=== PATIENT | female | born 1990 | race Caucasian/White ===

== ENCOUNTER → 2017-04-12 | Outpatient (CLI) | payer BC ==
[2015-12-22 10:25] VITALS: BP 130/83
[~2017-04-12] MED LIST: CEPH-264 PO
--- NOTE | 2017-04-12 11:17 | RAD ---
Indication: Cough for more than 3 days. Technique: Two-view chest radiograph was obtained. No comparison is available. Findings: The lungs are clear. The cardiopulmonary silhouette is within normal limits. There is no pleural effusion. The bony structures are intact. Impression: No acute thoracic findings.
== END | disposition home or self-care (01) ==
LOC: DXRAD 10:28
PROVIDERS: ATTEND Nurse Practitioner Family
DX: R05 Cough (principal); F17.200 Nicotine dependence, unspecified, uncomplicated
CPT/HCPCS: 71020

== ENCOUNTER → 2018-02-22 | Outpatient (CLI) | payer OTHER ==
[2015-12-22 10:25] VITALS: BP 130/83
[2018-02-22 10:27] LABS: BASO % 0 % (0-3); EOS # 0.1 x10^3/uL (0.0-0.7); EOS % 1 % (0-3); HEMATOCRIT 40.5 % (36.0-47.0); HEMOGLOBIN 13.7 g/dL (12.0-15.5); LYMPH # 2.3 x10^3/uL (1.0-4.8); LYMPH % 30 % (24-48); MEAN CORPUSCULAR HEMOGLOBIN 32 pg (25-35); MEAN CORPUSCULAR HGB CONC 34 g/dL (31-37); MEAN CORPUSCULAR VOLUME 94 fL (79-100); MONO # 0.6 x10^3/uL (0.0-1.1); MONO % 8 % (0-9); NEUT # 4.8 x10^3uL (1.8-7.7); NEUT % 61 % (31-73); PLATELET COUNT 201 x10^3/uL (140-400); RED BLOOD COUNT 4.33 x10^6/uL (3.50-5.40); RED CELL DISTRIBUTION WIDTH 13.3 % (11.5-14.5); WHITE BLOOD COUNT 7.9 x10^3/uL (4.0-11.0)
== END | disposition home or self-care (01) ==
LOC: PMG 09:36
PROVIDERS: ATTEND Physician Assistant Medical
DX: O21.0 Mild hyperemesis gravidarum (principal)
CPT/HCPCS: 36415; 84702; 85025

== ENCOUNTER → 2018-05-11 | Outpatient (CLI) | payer OTHER ==
[2015-12-22 10:25] VITALS: BP 130/83
--- NOTE | 2018-05-16 16:22 | RAD ---
Clinical indications: Size and date discrepancy. Evaluation for size and dates. Findings: A single intrauterine fetus is seen in cephalic position. heart rate is 140 beats per minute. BPD is 4.43 cm which equals 19 weeks 3 days. HC is 16.75 cm which equals 19 weeks 3 days. AC is 14.31 cm which equals 19 weeks 5 days. FL is 3.18 cm which equals 19 weeks 6 days. Average gestational age by ultrasound is 19 weeks 4 days +/- 12 days with an EDC of October 01, 2018. Clinical LMP is January 02, 2018 and based on this, the EDC would be October 09, 2018. Estimated weight is 0 lbs and 11 oz. . Resolution of the anatomy is poor due to the larger maternal body habitus. A four-chamber heart and three-vessel cord are identified. stomach and urinary bladder are identified. kidneys are unremarkable. Cord insertion site is unremarkable. The intracranial structures are morphologically normal in appearance. Cisterna magna is not well seen on this study but is less than 10 mm. The ventricular trigone measurement is 6.5 mm. The spine is poorly visualized in this study. Four extremities are identified. TOMASZ using the four quadrant method is [ ] cm. Cervical length is 5.2 cm. A grade 0 anterior placenta is seen. No placenta previa and no placenta abruptio is identified. The maternal ovaries are not visualized. Impression: Single IUP in cephalic presentation with gestational age of 19 weeks and 4 days. Electronically signed by: Geraldo Perez MD (05/16/2018 4:18 PM) [id number]
== END | disposition home or self-care (01) ==
LOC: US 11:42
PROVIDERS: ATTEND Obstetrics & Gynecology
DX: O26.842 Uterine size-date discrepancy, second trimester (principal); Z3A.19 19 weeks gestation of pregnancy
CPT/HCPCS: 76805

== ENCOUNTER → 2018-07-04 | Outpatient (CLI) | payer OTHER ==
[2015-12-22 10:25] VITALS: BP 130/83
--- NOTE | 2018-07-05 09:40 | RAD ---
Examination: PREG MORE THAN OR EQ TO 14 WKS History: SIZE AND DATE DISCREPANCY Comparison/Correlation: None Findings: OB ultrasound exam was performed. Exam is limited due to body habitus. Single living intrauterine gestation is present with cardiac rate of 137 bpm. movement evident. cardiac activity identified. Amniotic fluid index is 14.1 cm and this is within normal limits. Placenta is present along the anterior wall. Estimated weight is 1165 g +/- is 172 g. Biparietal diameter of 7 cm corresponds to 20 weeks 0 days. Head circumference of 25.8 cm corresponds to 20 weeks 0 day. Abdominal circumference of 23.1 cm corresponds to 27 weeks 3 days. Femur length of 5.4 cm corresponds 28 weeks 6 days. Head circumference to abdominal circumference ratio is 1.11. Estimated weight is 1165 g. Gestational age is 28 weeks 1 day by 4 parameters with ultrasound EDC of 09/25/2018. Impression: Gestational age of 28 weeks 1 day by ultrasound. Single living intrauterine gestation. Electronically signed by: Franck Lacy MD (07/05/2018 9:34 AM) [facility]
== END | disposition home or self-care (01) ==
LOC: US 14:46
PROVIDERS: ATTEND Obstetrics & Gynecology
DX: O26.843 Uterine size-date discrepancy, third trimester (principal); Z3A.28 28 weeks gestation of pregnancy
CPT/HCPCS: 76805

== ENCOUNTER → 2018-09-01 | Outpatient (CLI) | payer BC ==
[2015-12-22 10:25] VITALS: BP 130/83
[2018-09-01 14:25] LABS: BASO % 0 % (0-3); EOS # 0.1 x10^3/uL (0.0-0.7); EOS % 1 % (0-3); HEMATOCRIT 38.9 % (36.0-47.0); HEMOGLOBIN 13.3 g/dL (12.0-15.5); LYMPH % 17 % (24-48); MEAN CORPUSCULAR HEMOGLOBIN 31 pg (25-35); MEAN CORPUSCULAR HGB CONC 34 g/dL (31-37); MEAN CORPUSCULAR VOLUME 91 fL (79-100); MONO # 0.5 x10^3/uL (0.0-1.1); MONO % 4 % (0-9); NEUT # 8.7 x10^3uL (1.8-7.7); NEUT % 77 % (31-73); PLATELET COUNT 191 x10^3/uL (140-400); RED CELL DISTRIBUTION WIDTH 14.1 % (11.5-14.5); WHITE BLOOD COUNT 11.3 x10^3/uL (4.0-11.0)
== END | disposition home or self-care (01) ==
LOC: LAB 13:00
PROVIDERS: ATTEND Obstetrics & Gynecology
DX: O34.219 Maternal care for unspecified type scar from previous cesarean delivery (principal); Z3A.36 36 weeks gestation of pregnancy
CPT/HCPCS: 36415; 85025; 86592; 86703; 86762; 86900; 86901; 87340

== ENCOUNTER → 2019-06-01 | Outpatient (CLI) | payer BC ==
[2015-12-22 10:25] VITALS: BP 130/83
--- NOTE | 2019-06-01 13:11 | RAD ---
EXAM: Lumbar spine, 5 views. HISTORY: Pain. COMPARISON: None. FINDINGS: 5 views of the lumbar spine are obtained. There is no listhesis. There is degenerative endplate remodeling with disc space narrowing at L5-S1. There is also mild anterior endplate remodeling at L3-L4. There is facet arthropathy at the lumbosacral junction. IMPRESSION: 1. Degenerative change primarily at L5-S1. 2. No acute osseous finding. Electronically signed by: Rubi Cain MD (06/01/2019 1:08 PM) [place] [id number]
== END | disposition home or self-care (01) ==
LOC: DXRAD 12:32
PROVIDERS: ATTEND Physician Assistant Medical
DX: M48.07 Spinal stenosis, lumbosacral region (principal); M47.817 Spondylosis without myelopathy or radiculopathy, lumbosacral region; M12.88 Other specific arthropathies, not elsewhere classified, other specified site
CPT/HCPCS: 72110

== ENCOUNTER 2020-05-09 09:35 | Emergency (ER) | payer BC ==
[~2020-05-09] VITALS: Ht 175.3 cm; Wt 143.9 kg
[2020-05-09] MEDS ORDERED: ONDANSETRON PF 4 MG/2 ML VIAL. ONE (09:45)
[2020-05-09] MEDS ORDERED: ONDANSETRON PF 4 MG/2 ML VIAL. IVP ONE (10:00)
[2020-05-09] MEDS ORDERED: IV NORMAL SALINE 1,000ML 1,000 ML IV ONE (10:00)
[2020-05-09 10:34] LABS: BASO % 0 % (0-3); EOS # 0.2 x10^3/uL (0.0-0.7); EOS % 2 % (0-3); HEMATOCRIT 39.5 % (36.0-47.0); LYMPH # 2.7 x10^3/uL (1.0-4.8); LYMPH % 29 % (24-48); MEAN CORPUSCULAR HEMOGLOBIN 30 pg (25-35); MEAN CORPUSCULAR HGB CONC 33 g/dL (31-37); MEAN CORPUSCULAR VOLUME 92 fL (79-100); MONO # 0.5 x10^3/uL (0.0-1.1); MONO % 6 % (0-9); NEUT # 5.8 x10^3uL (1.8-7.7); NEUT % 62 % (31-73); PLATELET COUNT 225 x10^3/uL (140-400); RED BLOOD COUNT 4.27 x10^6/uL (3.50-5.40); RED CELL DISTRIBUTION WIDTH 13.7 % (11.5-14.5); WHITE BLOOD COUNT 9.2 x10^3/uL (4.0-11.0)
[2020-05-09 10:35] LABS: CALCIUM 8.1 mg/dL (8.5-10.1); CREATININE 0.8 mg/dL (0.6-1.0); GFR 85.4; POTASSIUM 3.7 mmol/L (3.5-5.1)
[2020-05-09 10:40] LABS: ALBUMIN 3.5 g/dL (3.4-5.0); ALBUMIN/GLOBULIN RATIO 1.1 (1.0-1.7); TOTAL BILIRUBIN 0.4 mg/dL (0.2-1.0); TOTAL PROTEIN 6.7 g/dL (6.4-8.2)
[2020-05-09 11:29] LABS: BACTERIA,URINE MOD /HPF (0-FEW); BILIRUBIN,URINE NEG (NEG); CLARITY,URINE HAZY; COLOR,URINE YELLOW; GLUCOSE,URINE NEG (NEG); NITRITE,URINE NEG (NEG); UROBILINOGEN,URINE 0.2 mg/dL (0.2 mg/dL)
[2020-05-09 11:30] LABS: SQUAMOUS EPITHELIAL CELL,UR MANY /LPF
--- NOTE | 2020-05-09 12:02 | RAD ---
Examination: US OB <14 WKS +TV History: bleeding, pain Comparison/Correlation: None Findings: OB ultrasound was performed with transabdominal and transvaginal technique. Uterus measures 9.8 cm x 6.1 cm x 5.5 cm AP myometrium is normal. Intrauterine gestational sac is pre sent. Yolk sac is present. pole is present with crown-rump length of 1 cm corresponding to 7 we eks 0 day. No subchorionic hemorrhage. Right ovary measures 3 cm x 2 cm x 1.95 cm . Left ovary measures 4.25 cm x 2.75 cm x 2.22 cm. Left ad nexal follicle measuring 2.3 cm diameter is physiologic in appearance. No suspicious fractures. Jen l ovarian flow is seen bilaterally. No pelvic free fluid. Impression: Single living intrauterine gestation with crown-rump length corresponding to 7 weeks 0 day. No subphr enic hemorrhage or other suspicious finding. Left adnexal follicle is visualized in appearance. Electronically signed by: Franck Lacy MD (05/09/2020 11:59 AM) [id number]
[2020-05-09] MEDS ORDERED: DOXY1TAB6 PO (12:23)
[2020-05-09] MEDS ORDERED: NITR100C62 PO (12:23)
[2020-05-09] MEDS ORDERED: ONDA4TAB7 PO (12:23)
--- NOTE | 2020-05-09 12:24 | PHYS DOC ---
Past History Past Medical History: No Pertinent History Past Surgical History: No Surgical History Additional Smoking Information: 5 CIGARETTES DAILY Alcohol Use: None Drug Use: None Adult General Chief Complaint Chief Complaint: NAUSEA/VOMITING/[facility] HPI Patient is a 29-year-old female who presents to the emergency room complaining of diarrhea 2 days ago and an episode of nausea and vomiting today. She states that she generally has not felt well for the last couple of days. She was tested for Covid on Wednesday and was negative. She has not had cough, loss of smell, loss of taste, fever, chills, sweats, shortness of breath. She denies any vaginal discharge, dysuria, hematuria. She did have some vaginal bleeding yesterday. She states she initially had cramping followed by bleeding. She thought that she was starting her period she has not had a period since she had her IUD taken out several months ago. She not currently on any control. Review of Systems Review of Systems Complete ROS is negative unless otherwise documented in HPI Current Medications Current Medications Current Medications Medications (Trade) Dose Ordered Sig/Delgado Start Time Stop Time Status Last Admin Dose Admin Ondansetron HCl (Zofran) 4 mg 1X ONCE 05/09/20 10:00 05/09/20 10:01 DC 05/09/20 09:59 4 MG Sodium Chloride 1,000 ml @ 1,000 mls/hr 1X ONCE 05/09/20 10:00 05/09/20 10:59 DC 05/09/20 09:58 1,000 MLS/HR Allergies Allergies Allergies Coded Allergies Type Severity Reaction Last Updated Verified Sulfa (Sulfonamide Antibiotics) Allergy Mild Rash 05/09/20 Yes Physical Exam Physical Exam General: Awake, alert, NAD. Well Nourished, well hydrated. Cooperative HEENT: Atraumatic, EOMI, PERRL, airway patent, moist oral mucosa Neck: Supple, trachea midline Respiratory: CTA bilaterally, normal effort, no wheezing/crackles CV: RRR, no murmur, cap refill <2 GI: Soft, nondistended, nontender, no masses MSK: No obvious deformities Skin: Warm, dry, intact Neuro: A&O x3, speech NL, sensory and motor grossly intact, no focal deficits Psych: Normal affect, normal mood, not suicidal or homicidal Current Patient Data Vital Signs Vital Signs Date Time Temp Pulse Resp B/P (MAP) Pulse Ox O2 Delivery O2 Flow Rate FiO2 05/09/20 10:44 78 15 118/79 (92) 99 Room Air 05/09/20 09:49 98.4 Lab Results Laboratory Tests Test 05/09/20 09:45 05/09/20 10:28 05/09/20 10:34 White Blood Count 9.2 x10^3/uL (4.0-11.0) Red Blood Count 4.27 x10^6/uL (3.50-5.40) Hemoglobin 13.0 g/dL (12.0-15.5) Hematocrit 39.5 % (36.0-47.0) Mean Corpuscular Volume 92 fL (79-100) Mean Corpuscular Hemoglobin 30 pg (25-35) Mean Corpuscular Hemoglobin Concent 33 g/dL (31-37) Red Cell Distribution Width 13.7 % (11.5-14.5) Platelet Count 225 x10^3/uL (140-400) Neutrophils (%) (Auto) 62 % (31-73) Lymphocytes (%) (Auto) 29 % (24-48) Monocytes (%) (Auto) 6 % (0-9) Eosinophils (%) (Auto) 2 % (0-3) Basophils (%) (Auto) 0 % (0-3) Neutrophils # (Auto) 5.8 x10^3uL (1.8-7.7) Lymphocytes # (Auto) 2.7 x10^3/uL (1.0-4.8) Monocytes # (Auto) 0.5 x10^3/uL (0.0-1.1) Eosinophils # (Auto) 0.2 x10^3/uL (0.0-0.7) Basophils # (Auto) 0.0 x10^3/uL (0.0-0.2) Sodium Level 136 mmol/L (136-145) Potassium Level 3.7 mmol/L (3.5-5.1) Chloride Level 102 mmol/L (98-107) Carbon Dioxide Level 27 mmol/L (21-32) Anion Gap 7 (6-14) Blood Urea Nitrogen 8 mg/dL (7-20) Creatinine 0.8 mg/dL (0.6-1.0) Estimated GFR (Cockcroft-Gault) 85.4 BUN/Creatinine Ratio 10 (6-20) Glucose Level 88 mg/dL (70-99) Calcium Level 8.1 mg/dL (8.5-10.1) L Total Bilirubin 0.4 mg/dL (0.2-1.0) Aspartate Amino Transferase (AST) 12 U/L (15-37) L Alanine Aminotransferase (ALT) 23 U/L (14-59) Alkaline Phosphatase 63 U/L (46-116) Total Protein 6.7 g/dL (6.4-8.2) Albumin 3.5 g/dL (3.4-5.0) Albumin/Globulin Ratio 1.1 (1.0-1.7) Lipase 50 U/L (73-393) L Urine Collection Type Unknown Urine Color Yellow Urine Clarity Hazy Urine pH 7.0 Urine Specific [place] >=1.030 Urine Protein Neg (NEG-TRACE) Urine Glucose (UA) Neg mg/dL (NEG) Urine Ketones (Stick) Neg mg/dL (NEG) Urine Blood Trace (NEG) Urine Nitrite Neg (NEG) Urine Bilirubin Neg (NEG) Urine Urobilinogen Dipstick 0.2 mg/dL (0.2 mg/dL) Urine Leukocyte Esterase Neg (NEG) Urine RBC 3-5 /HPF (0-2) Urine WBC 1-4 /HPF (0-4) Urine Squamous Epithelial Cells Many /LPF Urine Bacteria Mod /HPF (0-FEW) Urine Mucus Mod /LPF Maternal Serum HCG Beta Subunit 09900 mIU/mL (0-6) H POC Urine HCG, Qualitative hcg positive (Negative) EKG EKG [] Radiology/Procedures Radiology/Procedures [] Heart Score Risk Factors: Risk Factors: DM, Current or recent (<one month) smoker, HTN, HLP, family history of CAD, obesity. Risk Scores: Risk Factors: DM, Current or recent (<one month) smoker, HTN, HLP, family history of CAD, obesity. Course & Med Decision Making Course & Med Decision Making Pertinent Labs and Imaging studies reviewed. (See chart for details) Patient is 29-year-old female who presents to the emergency room complaining of nausea and vomiting. She had diarrhea couple days ago which is now resolved. Patient has a soft nontender abdomen. She is generally well-appearing. UA was done along with a test. test is positive. I have discussed this with the patient. It is likely that this is the cause of her nausea and vomiting. She has no other associated symptoms. She did have some vaginal bleeding yesterday and due to this will need evaluation. Beta-hCG and ultrasound were done. Patient is never required RhoGam in the past. Patient is feeling better after nausea medicine. Patient's test results and vitals while in the ED were fully reviewed and discussed with the patient. Patient is stable and at this time does not need admission to the hospital. We have discussed strict return precautions and the importance of following up with their Primary Care Physician. Patient stated understanding and was given an opportunity to ask any questions. Patient is in agreement with plan. Dragon Disclaimer Dragon Disclaimer This electronic medical record was generated, in whole or in part, using a voice recognition dictation system. Departure Departure: Impression: Primary Impression: Nausea and vomiting in Disposition: 01 DC HOME SELF CARE/HOMELESS Condition: IMPROVED Referrals: TABATHA HEARD (PCP) Patient Instructions: - First Trimester, Tacw-[id number], - Urinary Tract Infection, Vaginal Bleeding During , First Trimester Scripts Ondansetron Hcl (ZOFRAN) 4 Mg Tablet 1 TAB PO PRN Q6HRS PRN for NAUSEA, #6 TAB Prov: MIREAY ABEBE MD 05/09/20 Doxylamine Succinate/Vit B6 (Bonjesta ER 20-20 mg Tablet) 1 Each Tab.ir.dr 1 TAB PO BID for N/V for 30 Days, #60 TAB 0 Refills Prov: MIREYA ABEBE MD 05/09/20 Nitrofurantoin Monohyd/M-Cryst (MACROBID 100 MG CAPSULE) 100 Mg Capsule 1 CAP PO BID for UTI for 5 Days, #10 CAP 0 Refills Prov: MIREYA ABEBE MD 05/09/20 MIREYA ABEBE MD May 09, 2020 12:23
[2020-05-09 12:30] VITALS: BP 165/85
== END 2020-05-09 12:33 | disposition home or self-care (01) ==
LOC: ER 09:35
DX: O21.9 Vomiting of pregnancy, unspecified (principal); R19.7 Diarrhea, unspecified; O99.331 Smoking (tobacco) complicating pregnancy, first trimester; Z3A.01 Less than 8 weeks gestation of pregnancy; Z88.2 Allergy status to sulfonamides
CPT/HCPCS: 36415; 76801; 76817; 80053; 81001; 81025; 83690; 84702; 85025; 87086; 96361; 96374; 99284; J2405; J7030